=== PATIENT | male | born 1990 | race Caucasian/White ===

== ENCOUNTER 2017-03-19 23:36 | Inpatient (IN) | payer MEDICAID ==
--- NOTE | 2017-03-19 23:58 | ED Physician Chart ---
ED Chief Complaint/HPI - Patient Information Date Seen:: 03/19/17 Time Seen:: 23:45 Chief Complaint:: chest pain History of Present Illness:: At 2100 tonight patient developed pleuritic, sharp left superior chest pain 10 out of 10 in severity. Each episode of chest pain lasts a few seconds. Pain does not radiate. Patient's had a cough for the last 1 week initially productive of green sputum. Cough is now nonproductive. Patient has had prior episodes of sharp, left superior chest pain which were less severe than vickey' s. Allergies:: Allergies Allergy/AdvReac Type Severity Reaction Status Date / Time No Known Allergies Allergy Verified 03/19/17 23:54 Vitals:: Vital Signs - 8 hr 03/19/17 23:38 Temp 97.8 F HR 67 RR 17 BP 132/85 O2 Sat % 97 Historian:: Patient Review:: Nurse's Note Reviewed ED Review of Systems - Review of Systems General/Constitutional: No fever, No chills Skin: No skin lesions Head: No headache Eyes: No loss of vision ENT: No earache Neck: No neck pain, No thyromegaly Cardio Vascular: Chest pain Pulmonary: No SOB GI: No nausea, No vomiting, No diarrhea G/U: No dysuria, No frequency, No hematuria Musculoskeletal: No bone or joint pain, No back pain, No muscle pain Endocrine: No polyuria, No polydipsia Psychiatric: No prior psych history, No depression, No anxiety Hematopoietic: No bruising Neurological: No syncope, No focal symptoms ED Past Medical History - Past Medical History Past Medical History: No significant medical hx Family History: HTN Social History: Smoker, Alcohol, Other (smokes hookhah once a month and drinks alcohol occasionally; no illicit drug use) Surgical History: None Medication: Reviewed Family Medical History - Family Member Father History Unknown: Yes ED Physical Exam - Physical Examination General/Constitutional: Well-developed, well-nourished, Alert, No distress Head: Atraumatic Eyes: Lids, conjuctiva normal, PERRL Skin: Nl inspection, No rash, No skin lesions, No ecchymosis ENMT: External ears, nose nl, TM canals nl, Nasal exam nl, Lips, teeth, gums nl , Oropharynx nl, Tonsils nl Neck: No nuchal rigidity Respiratory: Nl effort/Exclusion, Clear to Auscultation, No Wheeze/Rhonchi/Rales Cardio Vascular: RRR, No murmur, gallop, rubs, NL S1 S2 GI: No tenderness/rebounding/guarding, No organomegaly, No hernia, Normal BS's, Nondistended, No mass/bruits, No McBurney tenderness Extremities: Normal digits & nails Neuro/Psych: No focal deficits Misc: No paraspinal tenderness ED Labs/Radiology/EKG Results - Lab Results Comments:: Laboratory Results - last 24 hr 03/20/17 03/20/17 03/20/17 00:10 00:10 00:10 WBC 11.6 H RBC 4.80 Hgb 15.3 Hct 44.7 MCV 93.1 MCH 32.0 H MCHC Differential 34.4 RDW 11.5 Plt Count 152 MPV 9.2 Neutrophils % 68.4 Lymphocytes % 23.0 Monocytes % 6.9 Eosinophils % 1.0 Basophils % 0.7 Sodium 133 L Potassium 3.7 Chloride 102 Carbon Dioxide 24.6 Anion Gap 10.1 BUN 15 Creatinine 1.0 Est GFR ( Amer) > 60.0 Est GFR (Non-Af Amer) > 60.0 BUN/Creatinine Ratio 15.0 Glucose 113 H Calcium 9.6 Magnesium Troponin I 0.01 03/20/17 00:10 WBC RBC Hgb Hct MCV MCH MCHC Differential RDW Plt Count MPV Neutrophils % Lymphocytes % Monocytes % Eosinophils % Basophils % Sodium Potassium Chloride Carbon Dioxide Anion Gap BUN Creatinine Est GFR ( Amer) Est GFR (Non-Af Amer) BUN/Creatinine Ratio Glucose Calcium Magnesium 1.9 Troponin I - Radiology Results Results: CXR normal - EKG Interpretations Rate & Rhythm: sinus arrhythmia with a rate of 57 [place]: normal axis Intervals: normal Comments:: Concave ST elevation in leads V1 to V3 ED Assessment - Assessment General Assessment: Patient's pain totally subsided after one sublingual nitroglycerin Repeat EKG at 0105: NSR; rate 67; Q waves in V1 and V3 ED Septic Shock - . Is Septic Shock (SBP<90, OR Lactate>4 mmol\L) present?: No - <6hrs of presentation: Vital Signs: Vital Signs - 8 hr 03/19/17 23:38 Temp 97.8 F HR 67 RR 17 BP 132/85 O2 Sat % 97 ED Reassessment (Disposition) - Reassessment Reassessment:: At [address] Flood the emergency department physician at [facility] and then faxed him the EKG. He faxed the EKG to Dr. Gonzalez the electrical engineering technologist on-call for the recyclable products sorter tonight and he said that the EKG did not show a STEMI and that the patient did not need to go emergently to the recyclable products sorter. I then spoke to Dr. George and he agreed patient should be admitted to telemetry. The second troponin was negative. - Diagnosis Diagnosis:: Chest pain - Patient Disposition Admitted to:: Telemetry Spoke to:: Nadira George Admitting Medical Physician:: Nadira George Condition at Disposition:: Stable, Improved
[2017-03-19] MEDS ORDERED: Albuterol Nebulizer 2.5mg/3mL HHN ONE (23:59)
[2017-03-20 00:23] LABS: % BASOPHILS 0.7 % (0.0-2.0); % MONOCYTES 6.9 % (2.0-10.0); % NEUTROPHILS 68.4 % (40.0-80.0); HEMATOCRIT 44.7 % (41.0-60); HEMOGLOBIN 15.3 gm/dL (12-16); MEAN CELL VOLUME 93.1 fl (80-99); MEAN CORPUSCULAR HGB CONC 34.4 pg (28.0-36.0); MEAN PLATELET VOLUME 9.2 fl; NEUTROPHILE ABSOLUTE 7.9 Th/cmm (1.8-8.0); PLATELET COUNT 152 Th/cmm (150-400); RED CELL DISTRIBUTION WIDTH 11.5 % (11.5-20.0); WHITE BLOOD COUNT 11.6 Th/cmm (4.8-10.8)
[2017-03-20 00:36] LABS: BUN - UREA NITROGEN 15 mg/dL (7-25); CALCIUM SERUM 9.6 mg/dL (8.6-10.3); CHLORIDE 102 mEq/L (98-107); GLUCOSE 113 mg/dL (70-105); POTASSIUM SERUM 3.7 mEq/L (3.5-5.1); SODIUM SERUM 133 mEq/L (136-145)
[2017-03-20] MEDS ORDERED: Potassium Chloride 20 mEq ER Tab PO ONE ×2 (00:54→01:17)
[2017-03-20 00:59] LABS: ANION GAP 10.1 (7.0-16.0); CARBON DIOXIDE 24.6 mEq/L (21.0-31.0)
[2017-03-20 04:06] VITALS: BP 140/85
[2017-03-20 05:56] LABS: % BASOPHILS 0.3 % (0.0-2.0); % EOSINOPHILS 2.3 % (0.0-5.0); % LYMPHOCYTES 32.2 % (20.0-50.0); % MONOCYTES 9.7 % (2.0-10.0); % NEUTROPHILS 55.5 % (40.0-80.0); ALB/GLOB RATIO 1.7 (1.0-1.8); ALKALINE PHOSPHATASE 68 U/L (34-104); ANION GAP 8.4 (7.0-16.0); BILIRUBIN,TOTAL 0.9 mg/dL (0.3-1.0); BUN - UREA NITROGEN 13 mg/dL (7-25); CALCIUM SERUM 9.5 mg/dL (8.6-10.3); CARBON DIOXIDE 28.6 mEq/L (21.0-31.0); CHLORIDE 102 mEq/L (98-107); CHOLESTEROL 137 mg/dL (<200); GLUCOSE 98 mg/dL (70-105); HEMATOCRIT 44.1 % (41.0-60); HEMOGLOBIN 15.3 gm/dL (12-16); MEAN CORPUSCULAR HEMOGLOBIN 32.3 pg (26.0-30.0); MEAN CORPUSCULAR HGB CONC 34.8 pg (28.0-36.0); MEAN PLATELET VOLUME 9.9 fl; NEUTROPHILE ABSOLUTE 4.9 Th/cmm (1.8-8.0); PLATELET COUNT 167 Th/cmm (150-400); RED BLOOD COUNT 4.75 Mil/cmm (4.30-5.70); RED CELL DISTRIBUTION WIDTH 11.5 % (11.5-20.0); SGOT 20 U/L (13-39); SGPT/ALT 25 U/L (7-52); SODIUM SERUM 135 mEq/L (136-145); TRIGLYCERIDES 93 mg/dL (<150)
[2017-03-20 06:04] LABS: WHITE BLOOD COUNT 8.7 Th/cmm (4.8-10.8)
--- NOTE | 2017-03-20 07:30 | Diagnostic Imaging Report ---
Portable chest x-ray History: Pain Allowing for portable technique the heart size is normal. No focal pulmonary parenchymal processes. No hilar or mediastinal abnormalities. Impression: No acute abnormalities.
[2017-03-20] MEDS ORDERED: Aspirin 81mg Chewable Tab PO SCH (09:00)
--- NOTE | 2017-03-20 12:44 | History & Physical ---
ADMIT DATE: 03/20/2017 CHIEF COMPLAINT: Chest pain. HISTORY OF PRESENT ILLNESS: A 26-year-old gentleman with no medical history, who has been experiencing chest pain on and off for the last 6 months. The patient does admit to anxiety and lack of sleep for about a year. He has had multiple ER visits secondary to similar episodes of chest pain, which is mostly left-sided, pressure like and occasionally with the radiation to the left shoulder. Apparently, in all the ER visits cardiac workup (trops/ekgs) been negative for acute coronary syndrome. He has not had any formal cardiology workup. The patient states that the pain mostly occurs when he wants to asleep and the pain may last for minutes to hours. Last night, the patient felt the pain at 10/10 and came into the ER-the pain eventually subsided with no meds given. The last ER visit that he had was about a month ago when he went to [facility], again with apparently negative troponins and negative EKGs. The patient does admit to feeling anxious 2ry to lack of sleep, and he also states that he had a cough and nasal congestion with some cough for the last week or so , but is getting better overall. The patient was admitted overnight to rule out acute coronary syndrome. On further questioning, the patient denies any nausea, vomiting, or diaphoresis when he has chest pain. Occasionally, he does get some shortness of breath, which he thinks secondary to anxiety. PAST MEDICAL HISTORY: As noted above. FAMILY HISTORY: History of hypertension. SOCIAL HISTORY: He smokes hookah about once to twice a month, but does not smoke cigarette, alcohol socially. No illicit drug usage. Lives at home with family. PAST SURGICAL HISTORY: None. ALLERGIES: NKDA. OUTPATIENT MEDICATIONS: He takes unknown anxiolytics. REVIEW OF SYSTEMS: CONSTITUTIONAL: Denies any fever or chills. No recent weight loss. CARDIOVASCULAR: Chest pain as noted above. No angina type symptomatology per noted history. PULMONARY: As noted above. Occasional cough with phlegm production, which is getting better. GASTROINTESTINAL: No bowel habit changes. GENITOURINARY: No bladder habit changes. NEUROLOGIC: No changes in vision. No headaches. PHYSICAL EXAMINATION: VITAL SIGNS: Temperature 97.3, pulse 55-71, blood pressure 140/85, respirations 18-20, satting on 2 liters 98%. GENERAL: Well-nourished, well-development, not in acute distress. Awake, alert and oriented x 3. HEAD AND NECK: Normocephalic, atraumatic. Pupils are reactive to light. Extraocular movements are intact. Oropharynx moist and clear. CARDIAC: Regular rate and rhythm without any murmurs. Chest wall exam, no chest pain elicited on palpation. LUNGS: Clear to auscultation bilaterally. ABDOMEN: Soft, supple, nontender, nondistended, normoactive bowel sounds. EXTREMITIES: There is no edema of lower extremity. LABORATORY DATA: White count 11.6, H and H 15/44, platelet count of 152. Sodium 133, potassium 3.7. Glucose 113, A1c is 5.2, magnesium 1.9. LFTs were within normal limits. LDL 108, HDL 35, TSH 5.5. Troponins are negative x 1 set. DIAGNOSTICS: EKG sinus rhythm at a rate of 67. Chest x-ray shows no acute abnormalities. IMPRESSION: 1. Chest pain, rule out acute coronary syndrome. No obvious risk factors, likely musculoskeletal in origin or it could be secondary to anxiety. 2. Anxiety. 3. Insomnia. PLAN: The patient has been admitted to telemetry mata for further management and care. He has been placed on aspirin 81 q. day and will undergo cardiac work-up (1 more set of trops). I also have ordered a 2D echo and I have explained current findings to the patient, who was agreeable to be discharged if all the tests remained negative. I also told him that he should follow up with pcp dianne, and get cardio referral for outpt stress test (treadmill). JOB# [id number] LISSETH
--- NOTE | 2017-03-20 19:45 | Discharge Summary ---
DATE OF DISCHARGE: 03/20/2017 ADMITTING DIAGNOSES: 1. Chest pain, rule out acute coronary syndrome. 2. Anxiety. 3. Insomnia. DISCHARGE DIAGNOSES: 1. Chest pain, workup negative for acute coronary syndrome. Likely 2ry to anxiety or musculoskeletal. 2. Anxiety/insomnia. 3. Possible tracheobronchitis/allergic rhinitis. CONSULTANTS: No consultants were used during this admission. MAJOR PROCEDURES: Echocardiogram done today 03/20/2017 shows EF of 60-65% with no effusions. BRIEF HOSPITAL COURSE: A 26-year-old male who has been experiencing on and off chest pain for about 6 months with multiple ER visits and negative workup including troponins and EKGs. He presented to the ER yesterday complaining of left-sided chest pain, but with no angina associated symptomatology such as nausea, diaphoresis or major SOB. The patient was admitted to the telemetry mata where he was ruled out with troponins. A 2D echo was done with normal results. The patient also complained of a cough for about a week, which was making his symptoms worse. He states that the chest pain was more noticeable when he takes a deep breath or when he coughs. The patient was placed on aspirin with nitroglycerin p.r.n. He reported no chest pain since admission but stated that the pain usually started at night when he gets anxious because of lack of sleep. CONDITION ON DISCHARGE: Stable. DISCHARGE MEDICATIONS: Aspirin 81 every day, Levaquin 500 mg p.o. every day x 7 days and Phenergan DM 10 mL q.4 p.r.n. for cough, and Ambien 10 mg p.o. every day x 7 days. DISPOSITION: The patient was discharged home to self-care. I instructed him to follow up with his primary care doctor and to have a Cardiology referral for a stress test. JOB# [id number] LISSETH
== END 2017-03-20 12:05 | disposition home or self-care (01) | DRG 203 ==
LOC: ER 23:36 → TELE 03-20 02:20
PROVIDERS: ADMIT Internal Medicine; ATTEND Internal Medicine
DX: R07.89 Other chest pain (principal); F41.9 Anxiety disorder, unspecified; F17.210 Nicotine dependence, cigarettes, uncomplicated; G47.00 Insomnia, unspecified; J40 Bronchitis, not specified as acute or chronic; J30.9 Allergic rhinitis, unspecified
CPT/HCPCS: 36415-UA; 71010-TC; 80048-TC; 80053-TC; 80061-TC; 82550-TC; 83036-90; 83735-TC; 84443-TC; 84484-TC; 85025-TC; 93005; 93307-TC; 94640; 94760; J7613; Z7610

== ENCOUNTER 2017-08-23 16:49 | Emergency (ER) | payer MEDICAID ==
--- NOTE | 2017-08-23 21:02 | ER Physician Documentation ---
DATE OF SERVICE: 08/23/2017 EMERGENCY ROOM EVALUATION AND TREATMENT HISTORY OF PRESENT ILLNESS: The history was obtained from the patient. He said that he had sex with a woman about 8-10 days ago and after that, he found that he developed a redness on his glans penis and the skin below that; he finds that lesion around there. There is no pus discharge. There is redness over there. Otherwise, there are no pimples or pustules or anything else seen. I did not find any enlargement of the lymph nodes or glands. REVIEW OF SYSTEMS: A 12-point review of systems was essentially negative. PERSONAL HISTORY: , has children, 2 sons. He met this girl in the bar and then they went and had twice sex. The patient had a previous surgery, including appendicectomy surgery done in the past. The patient's brother has asthma. The patient was seen by the triage nurse showing temperature 98.6, pulse 53, respirations 18, blood pressure 130/81, 98%. Height is 5 feet 7 inches, weight 180 pounds. The patient is drinking once a week or so according to him. He does not take ____. Tetanus status is negative. The patient was examined. REVIEW OF SYSTEMS: A 12-point review of systems is essentially benign and negative. No lung problems, no COPD, no emphysema, no heart problems, no chest pain, no myocardial infarction, no rheumatic fever, no valvular disease. GI [place]; no diarrhea or constipation, vomiting. Endocrine [place]; also no diabetes, no hypothyroidism. Costovertebral angle is negative. Genitourinary; there is no purulent discharge from the thing. The patient did wear a condom over his penis during making love to this woman whom he met in the bar. The patient does not want lab workup to be done. The patient wants some medication and all he needs, to my knowledge, is some bacitracin ointment and not to do any sexual activity until it heals. Gradually, he is going to heal and the redness will go away because it is a friction-induced redness. If it does not go away, he might need some antibiotics, but right now I do not think he needs any antibiotics. I will ask him if he wants it, I might give him some doxycycline for 5 days as that might help him to clear faster. IMPRESSION: Redness around glans penis and near the glans penis about 1 inch above that is redness and a history of appendicectomy. So, the patient will go home also on bacitracin ointment and doxycycline for 7 days twice a day and with that, he can take probiotics 2 tablets 3 times a day and that should take care of him. I will give some antibiotic also. JOB# [id number]
== END 2017-08-23 17:40 | disposition short-term general hospital (02) ==
LOC: ER 16:49
DX: N48.89 Other specified disorders of penis (principal)
CPT/HCPCS: Z7502

== ENCOUNTER 2017-09-01 22:51 | Emergency (ER) | payer MEDICAID ==
--- NOTE | 2017-09-01 23:28 | ED Physician Chart ---
ED Chief Complaint/HPI - Patient Information Date Seen:: 09/01/17 Time Seen:: 23:15 Chief Complaint:: numbness left forearm History of Present Illness:: About 2 hours ago while watching a baseball game patient developed numbness from his proximal left forearm down to his left index, long and ring fingers. No trauma. Patient is right-hand dominant Allergies:: Allergies Allergy/AdvReac Type Severity Reaction Status Date / Time No Known Allergies Allergy Verified 09/01/17 23:13 Vitals:: Vital Signs - 8 hr 09/01/17 23:00 Temp 97.8 F HR 54 RR 18 BP 137/66 O2 Sat % 95 Historian:: Patient Review:: Nurse's Note Reviewed ED Review of Systems - Review of Systems General/Constitutional: No fever, No chills, No weight loss, No weakness, No diaphoresis, No edema, No loss of appetite Skin: No skin lesions, No rash, No bruising Head: No headache, No light-headedness Eyes: No loss of vision, No pain, No diplopia ENT: No earache, No nasal drainage, No sore throat, No tinnitus Neck: No neck pain, No swelling, No thyromegaly, No stiffness, No mass noted Cardio Vascular: No chest pain, No palpitations, No PND, No orthopnea, No edema Pulmonary: No SOB, No cough, No sputum, No wheezing GI: No nausea, No vomiting, No diarrhea, No pain, No melena, No hematochezia, No constipation, No hematemesis G/U: No dysuria, No frequency, No hematuria Musculoskeletal: No bone or joint pain, No back pain, No muscle pain, Other ( see history and physical) Endocrine: No polyuria, No polydipsia Psychiatric: No prior psych history, No depression, No anxiety, No suicidal ideation Hematopoietic: No bruising, No lymphadenopathy Allergic/Immuno: No urticaria, No angioedema Neurological: No syncope, Focal symptoms, No weakness, No paresthesia, No headache, No seizure, No dizziness, No confusion, No vertigo ED Past Medical History - Past Medical History Past Medical History: No significant medical hx Family History: Diabetes Melitus, HTN Social History: Smoker (smokes occasionally), Alcohol (smokes occasionally; drinks 32 to 64 ounces beer per weekend) Surgical History: Appendectomy Psychiatricy History: None Medication: None Family Medical History - Family Member Father History Unknown: Yes Ethnicity: Living Status: Still Living Hx Family Cancer: No Hx Family Coronary Artery Disease: No Hx Family Congestive Heart Failure: No Hx Family Hypertension: Yes Hx Family Stroke: No Hx Family Diabetes: No Hx Family Seizures: No Hx Family Dementia: No Hx Family AIDS: No Hx Family HIV: No Hx Family COPD: No Hx Family Hepatitis: No Hx Family Psychiatric Problems: No Hx Family Tuberculosis: No Grandmother Ethnicity: Living Status: Still Living Hx Family Hypertension: Yes Hx Family Diabetes: Yes ED Physical Exam - Physical Examination General/Constitutional: Well-developed, well-nourished, Alert, No distress Head: Atraumatic Eyes: Lids, conjuctiva normal, PERRL Skin: Nl inspection, No rash, No skin lesions, No ecchymosis ENMT: External ears, nose nl, TM canals nl, Nasal exam nl, Lips, teeth, gums nl Neck: No nuchal rigidity Respiratory: Nl effort/Exclusion, Clear to Auscultation, No Wheeze/Rhonchi/Rales Cardio Vascular: RRR, No murmur, gallop, rubs, NL S1 S2 GI: No tenderness/rebounding/guarding, No organomegaly, No hernia, Normal BS's, Nondistended, No mass/bruits, No McBurney tenderness : No CVA tenderness Extremities: Normal digits & nails Neuro/Psych: Alert/oriented Other Neuro/Psych comments:: Decreased left hand grasp; motor and sensory radial, median and ulnar nerves intact left hand; sensation both sides of ring finger the same. Misc: Normal back ED Assessment - Assessment General Assessment: Etiology of the patient's left arm numbness is uncertain but probably is benign ED Septic Shock - . Is Septic Shock (SBP<90, OR Lactate>4 mmol\L) present?: No - <6hrs of presentation: Vital Signs: Vital Signs - 8 hr 09/01/ 23:00 Temp 97.8 F HR 54 RR 18 BP 137/66 O2 Sat % 95 ED Reassessment (Disposition) - Reassessment Reassessment Condition:: Unchanged - Diagnosis Diagnosis:: Paresthesias left arm - Aftercare/Follow up Instructions Aftercare/Follow-Up Instructions:: Refer to Discharge Instructions - Patient Disposition Discharge/Transfer:: Home Condition at Disposition:: Stable, Unchanged
== END 2017-09-02 00:01 | disposition home or self-care (01) ==
LOC: ER 22:51
DX: R20.2 Paresthesia of skin (principal); F17.200 Nicotine dependence, unspecified, uncomplicated
CPT/HCPCS: 82948-90